=== PATIENT | female | born 1985 | race African-American/Black ===

== ENCOUNTER 2022-04-28 06:55 | Inpatient (IN) | payer MEDICAID ==
[~2022-04-28 06:55] MED LIST: Bupivacaine 0.25% 10 ML SDV ONE
[2022-04-28] MEDS ORDERED: Ondansetron 4 MG/2 ML SDV IVPUSH PRN (07:06)
[2022-04-28] MEDS ORDERED: Nalbuphine HCl 10 MG/ 1ML Amp IVPUSH PRN (07:06)
[2022-04-28] MEDS ORDERED: Sodium Chloride 0.9% 10 ML Syringe FLUSH PRN (07:06)
[2022-04-28] MEDS ORDERED: Oxytocin/Lactated Ringers 10 UNIT/1,000 ML BAG IV SCH ×2 (07:15)
[2022-04-28] MEDS ORDERED: diphenhydrAMINE 50 MG/ML SDV IVPUSH PRN (08:02)
[2022-04-28] MEDS: Lactated Ringers 1,000 ML IV SCH ×5 (08:50→17:35)
[2022-04-28] MEDS: ePHEDrine 50 MG/ML SDV IVPUSH PRN ×4 (12:53→13:20)
[2022-04-28] MEDS ORDERED: Terbutaline 1 MG/ML SDV ONE (13:04)
[2022-04-28] MEDS: Bupivacaine/fentaNYL/NS 100 ML Bag EPIDUR PRN ×2 (14:15→19:59)
[2022-04-28] MEDS: fentaNYL 100 MCG/2 ML SDV EPIDUR PRN ×2 (14:17→20:03)
[2022-04-28] MEDS: Sodium Chloride 0.9% 10 ML Syringe FLUSH SCH (14:53)
[2022-04-28] MEDS ORDERED: Docusate Sodium 100 MG Cap PO PRN (22:46)
[2022-04-28] MEDS ORDERED: Witch Hazel Medicated Pads 40/Jar TOP PRN (22:46)
[2022-04-28] MEDS ORDERED: Benzocaine/Menthol 20%-0.5% Spray 78 GM Cannister TOP PRN (22:46)
[2022-04-29] MEDS: Sodium Chloride 0.9% 10 ML Syringe FLUSH SCH (00:25)
[2022-04-29] MEDS: Ibuprofen 600 MG Tab PO PRN ×2 (03:01→16:09)
[2022-04-29] MEDS: Acetaminophen 325 MG Tab PO PRN ×2 (05:42→22:01)
[2022-04-30] MEDS: Ibuprofen 600 MG Tab PO PRN (09:55)
== END 2022-04-30 13:30 | disposition home or self-care (01) | DRG 807 ==
LOC: JD.OB 06:55 → OBSVTOIN 21:30 → JD.OB 21:30
PROVIDERS: ADMIT Obstetrics & Gynecology; ATTEND Obstetrics & Gynecology
PROC: 10D07Z6 Extraction of Products of Conception, Vacuum, Via Natural or Artificial Opening (ICD-10-PCS; principal; 2022-04-28)
PROC: 10907ZC Drainage of Amniotic Fluid, Therapeutic from Products of Conception, Via Natural or Artificial Opening (ICD-10-PCS; 2022-04-28)
PROC: 3E0P7VZ Introduction of Hormone into Female Reproductive, Via Natural or Artificial Opening (ICD-10-PCS; 2022-04-28)
PROC: 3E033VJ Introduction of Other Hormone into Peripheral Vein, Percutaneous Approach (ICD-10-PCS; 2022-04-28)
PROC: 3E0R3BZ Introduction of Anesthetic Agent into Spinal Canal, Percutaneous Approach (ICD-10-PCS; 2022-04-28)
PROC: 00HU33Z Insertion of Infusion Device into Spinal Canal, Percutaneous Approach (ICD-10-PCS; 2022-04-28)
DX: O24.424 Gestational diabetes mellitus in childbirth, insulin controlled (principal); Z37.0 Single live birth; O77.0 Labor and delivery complicated by meconium in amniotic fluid; Z3A.39 39 weeks gestation of pregnancy; Z90.49 Acquired absence of other specified parts of digestive tract; Z87.891 Personal history of nicotine dependence
CPT/HCPCS: 01967; 36415; 51702; 59020; 59409; 82947; 85027; 86592; 86850; 86900; 86901; A9270-GY; C1726; J2405; J2590; J3010; J3490; J7120

== ENCOUNTER 2022-05-02 07:15 | Emergency (ER) | payer MEDICAID ==
[2022-05-02] MEDS ORDERED: Albuterol/Ipratropium 3.0-0.5 MG/3 ML Neb Soln NEB PRN (08:47)
[2022-05-02] MEDS ORDERED: Sodium Chloride 0.9% 1,000 ML IV SCH (09:00)
[2022-05-02] MEDS ORDERED: Iopamidol 755 Mg/ML 100 ML Bottle IVPUSH ONE (10:20)
[2022-05-02] MEDS ORDERED: Sodium Chloride 0.9% 10 ML Syringe FLUSH PRN (10:20)
[2022-05-02] MEDS ORDERED: Sodium Chloride 0.9% 45 ML IV SCH (10:30)
[2022-05-02] MEDS ORDERED: Furosemide 40 MG/4 ML VIAL IVPUSH ONE (11:04)
[2022-05-02 14:03] LABS: CORONAVIRUS COVID-19 NAA NEGATIVE (NEGATIVE)
== END 2022-05-02 15:30 | disposition critical access hospital (66) ==
LOC: SUPCPDRO 07:15 → JD.ED 07:15
DX: O99.43 Diseases of the circulatory system complicating the puerperium (principal); I42.9 Cardiomyopathy, unspecified; O89.1 Cardiac complications of anesthesia during the puerperium; I50.9 Heart failure, unspecified; R09.02 Hypoxemia; J44.9 Chronic obstructive pulmonary disease, unspecified; Z20.822 Contact with and (suspected) exposure to COVID-19; Z99.81 Dependence on supplemental oxygen
CPT/HCPCS: 0240U; 36415; 36600; 71045; 71275; 80053; 82803; 83735; 83880; 84484; 85025; 85379; 85610; 85730; 86140; 93005; 94640; 96361; 96374; 99285; J1940; J3490; J7030; Q9967; 93010; 99284; J7620-GY